=== PATIENT | male | born 1960 | race Caucasian/White ===

== ENCOUNTER 2019-06-30 06:11 | Emergency (ER) | payer SELFPAY ==
[2019-06-30] MEDS ORDERED: MORPHINE 4 MG/ML SYR ONE ×2 (06:29→11:01)
[2019-06-30] MEDS ORDERED: ONDANSETRON 4 MG/2 ML VIAL ONE (06:29)
[2019-06-30 06:31] LABS: Absolute Lymphocytes (CBC) 1.8 K/uL (0.7-4.9); Basophils % 0.8 % (0-1.3); Hematocrit 38.3 % (39.6-49.0); MPV 8.7 fL (7.6-11.3); RBC Red Blood Cell Count 4.33 M/uL (4.33-5.43)
[2019-06-30 06:47] LABS: Albumin 3.6 g/dL (3.4-5.0); Bilirubin Direct 0.1 mg/dL (0-0.2); Bilirubin Total 0.4 mg/dL (0.2-1.0); Potassium 3.3 mmol/L (3.5-5.1); Protein, Total 6.6 g/dL (6.4-8.2)
--- NOTE | 2019-06-30 07:47 | RAD REPORT ---
EXAM DESCRIPTION: CT - Abdomen Pelvis W Contrast - 06/30/2019 7:30 am CLINICAL HISTORY: ABD PAIN COMPARISON: Gallbladder ultrasound same date TECHNIQUE: Biphasic, helical CT imaging of the abdomen and pelvis was performed following 100 ml non -ionic IV contrast. Oral contrast was given. All CT scans are performed using dose optimization technique as appropriate and may include automated exposure control or mA/KV adjustment according to patient size. FINDINGS: No suspicious findings in the lung bases. The liver, spleen, and pancreas show no suspicious findings. Liver does demonstrate a fatty infiltrat ion pattern. Gallbladder is well filled but not dilated. No wall thickening, wall edema or pericholec ystic fluid suspected. There is questionable focal area of sludge or stones near the cystic duct orig in. No intrahepatic biliary tree dilatation. Common bile duct is prominent at 8- 9 mm. Duct stones ca n be occult on CT imaging. The Symmetric renal function is seen with no hydronephrosis or suspicious renal mass. No pyelonephritis o r acute parenchymal process. No bladder abnormalities. No adrenal abnormalities. No dilated bowel loops or bowel wall thickening. Mild sigmoid diverticulosis present without divertic ulitis. No appendicitis findings. No free air, free fluid or inflammatory stranding. No mass or bulk y lymphadenopathy. There appears to be postsurgical change to the lower abdominal wall. Left inguinal surgical clips are in place. Fat extends a few cm into the origin of the right inguinal canal. No ed isaac or congestion in this region. No suspicious bony findings. No suspicious vascular finding. IMPRESSION: Common bile duct is 8-9 mm without intrahepatic dilatation. Duct stones can be occult on CT imaging. Gallbladder is distended but not dilated. There are questionable stones or sludge near the cystic jovan t origin. Correlation is needed with any clinical or exam findings for gallstones/duct stone related pain patte rn. No other evidence for an acute process. Nonacute findings detailed in the body of the report.
--- NOTE | 2019-06-30 07:49 | RAD REPORT ---
EXAM DESCRIPTION: US - Abdomen Exam Limited - 06/30/2019 7:08 am CLINICAL HISTORY: r/o GB;Abd pain COMPARISON: No comparisons FINDINGS: No gallstones are confirmed on this examination. However, the deep central portion of the gallbladder near the cystic duct origin is not optimally visualized. Liver shows a diffuse fatty infi ltration pattern in this limits sonographic penetrance. No gallbladder wall thickening or pericholecystic fluid seen. Intrahepatic ducts are not dilated. Com mon bile duct is 8-9 mm. No duct stone could be seen. IMPRESSION: Common bile duct is 8- 9 mm, larger than typically seen but without evidence for a duct stone. No gallstones confirmed ; however, the deep central portion of the gallbladder near the cystic duct i s not optimally visualized. Fatty infiltration of the liver. If the patient has biliary obstructive symptoms, MRCP imaging would be an alternative means for evalu ating the common duct.
--- NOTE | 2019-06-30 11:11 | RAD REPORT ---
EXAM DESCRIPTION: MRI - Cholangiogram - 06/30/2019 10:53 am CLINICAL HISTORY: abd pain COMPARISON: Abdomen Pelvis W Contrast dated 06/30/2019; Abdomen Exam Limited dated 06/30/2019 FINDINGS: Three-dimensional MRCP was performed using maximum intensity projection reconstruction on the same work station. No intrahepatic biliary tree dilatation is seen. The common bile duct is normal caliber without evide nce of retained stone, stricture or mass. The pancreatic duct is not pathologically dilated. The gallbladder is unremarkable. Limited T2 sequences through the abdomen demonstrates no bulky adenopathy, significant free fluid or abscess. IMPRESSION: Negative MR cholangiogram.
--- NOTE | 2019-06-30 11:16 | EDPHYS ---
Physician Documentation [facility] Name: Xavier Youngblood Age: 58 yrs Sex: Male : 1960 Arrival Date: 06/30/2019 Time: 06:12 Bed 18 Private MD: ED Physician Geo Alba HPI: 06/30 06:15 This 58 yrs old Male presents to ER via EMS with complaints of abd pain, back jr8 pain. 06:15 Onset: The symptoms/episode began/occurred this morning. The symptoms radiate to jr8 Associated signs and symptoms: Pertinent negatives: nausea and vomiting, diarrhea. The symptoms are described as sharp. Pt reports waking up at 0300 with sharp pain in RUQ, back, Flank. Historical: - Allergies: 06:16 No Known Allergies; ak1 - Home Meds: 06:16 Lisinopril Oral [Active]; Metoprolol Tartrate Oral [Active]; tamsulosin oral oral ak1 [Active]; - PMHx: 06:16 Hypertension; ak1 - PSHx: 06:16 Hernia repair; TBI - amnesia, skull sx; ak1 - Immunization history:: Adult Immunizations unknown. - Social history:: Smoking status: Patient/guardian denies using tobacco. - Ebola Screening: : No symptoms or risks identified at this time. ROS: 06:16 Constitutional: Negative for fever, chills, and weight loss, Eyes: Negative for injury, jr8 pain, redness, and discharge, ENT: Negative for injury, pain, and discharge, Neck: Negative for injury, pain, and swelling, Cardiovascular: Negative for chest pain, palpitations, and edema, Respiratory: Negative for shortness of breath, cough, wheezing, and pleuritic chest pain, Back: Negative for injury and pain, MS/Extremity: Negative for injury and deformity, Neuro: Negative for headache, weakness, numbness, tingling, and seizure. 06:16 Abdomen/GI: Positive for abdominal pain, Negative for nausea, vomiting, and diarrhea. Exam: 06:16 Constitutional: This is a well developed, well nourished patient who is awake, alert, jr8 and in no acute distress. Head/Face: Normocephalic, atraumatic. Eyes: Pupils equal round and reactive to light, extra-ocular motions intact. Lids and lashes normal. Conjunctiva and sclera are non-icteric and not injected. Cornea within normal limits. Periorbital areas with no swelling, redness, or edema. ENT: MMM Neck: Trachea midline, no thyromegaly or masses palpated, and no cervical lymphadenopathy. Supple, full range of motion without nuchal rigidity, or vertebral point tenderness. No Meningismus. Chest/axilla: Normal chest wall appearance and motion. Nontender with no deformity. No lesions are appreciated. Cardiovascular: Regular rate and rhythm with a normal S1 and S2. No gallops, murmurs, or rubs. Normal PMI, no JVD. No pulse deficits. Respiratory: Lungs have equal breath sounds bilaterally, clear to auscultation and percussion. No rales, rhonchi or wheezes noted. No increased work of breathing, no retractions or nasal flaring. 06:16 Abdomen/GI: Inspection: obese Bowel sounds: normal, Palpation: soft, in all quadrants, moderate abdominal tenderness, in the right upper quadrant , voluntary guarding, is elicited in the right upper quadrant, Indicators: McBurney's point is not tender, White's sign is positive, Rovsing's sign is negative, Obturator sign is negative, Psoas sign is negative. Vital Signs: 06:12 BP 117 / 82; Pulse 84; Resp 16; Temp 97.9(O); Pulse Ox 98% on R/A; Weight 86.18 kg (R); ak1 Height 5 ft. 7 in. (170.18 cm) (R); Pain 10/10; 07:57 BP 115 / 80; Pulse 63; Resp 17; Pulse Ox 95% on R/A; tw2 08:51 BP 108 / 75; Pulse 67; Resp 17; Pulse Ox 98% on R/A; tw2 10:00 BP 105 / 72; Pulse 68; Resp 17; Pulse Ox 97% on R/A; tw2 11:16 BP 114 / 73; Pulse 61; Resp 17; Pulse Ox 100% on R/A; tw2 06:12 Body Mass Index 29.76 (86.18 kg, 170.18 cm) ak1 MDM: 06:15 Patient medically screened. jr8 11:13 Data reviewed: vital signs, nurses notes, radiologic studies, and as a result, I will jr8 discharge patient. Data interpreted: Pulse oximetry: on room air is 97 %. Interpretation:. Counseling: I had a detailed discussion with the patient and/or guardian regarding: the historical points, exam findings, and any diagnostic results supporting the discharge/admit diagnosis, lab results, radiology results, the need for outpatient follow up, a general surgeon. ED course: Pt feeling much better, tolerating PO fluids, No acute findings on MRCP, discussed possible need for HIDA scan. Will have PT FU with GI and SX, return precautions given. 06/30 06:16 Order name: Basic Metabolic Panel; Complete Time: 06:52 06/30 06:16 Order name: CBC with Diff; Complete Time: 06/30 06:16 Order name: Creatinine for Radiology; Complete Time: 06/30 06:16 Order name: Hepatic Function; Complete Time: :06/30 06:16 Order name: Lipase; Complete Time: :06/30 06:16 Order name: US Abdomen Limited; Complete Time: 07:06/30 06:16 Order name: IV Saline Lock; Complete Time: 06:24 06/30 06:16 Order name: Labs collected and sent; Complete Time: 06:24 06/30 07:11 Order name: CT Abd/Pelvis - IV Contrast Only; Complete Time: 07:56 06/30 08:19 Order name: Cholangiogram; Complete Time: 11:22 EDMS Administered Medications: 06:35 Drug: Zofran 4 mg Route: IVP; Site: right antecubital; 4 08:11 Follow up: Response: No adverse reaction tw2 06:37 Drug: morphine 4 mg {Note: Rass score 0, b/p 126/80.} Route: IVP; Site: right jb4 antecubital; 07:35 Follow up: Response: No adverse reaction; Pain is decreased; RASS: Alert and Calm (0) tw2 11:05 Drug: morphine 4 mg Route: IVP; Site: right antecubital; tw2 11:30 Follow up: Response: No adverse reaction; Pain is decreased; RASS: Alert and Calm (0) tw2 11:10 CANCELLED (Duplicate Order): morphine 4 mg Sub-Q once; RASS on ADMIN: Combtv4, Very tw2 Agttd3, Agttd2, Rstlss1, AlertClm0, Drwsy-1, Lt Sdtn-2, Mod Sdtn-3, Dp Sdtn-4, UnArsble-5 Disposition: 07/01 07:22 Co-signature as Attending Physician, Geo Alba MD I agree with the assessment and 4 plan of care. Disposition: 06/30/19 11:15 Discharged to Home. Impression: Upper abdominal pain, unspecified. - Condition is Stable. - Discharge Instructions: Fat and Cholesterol Restricted Diet, Cholelithiasis. - Prescriptions for Tylenol- Codeine #3 300-30 mg Oral Tablet - take 2 tablets by ORAL route every 6 hours As needed; 20 tablet. Zofran 4 mg Oral Tablet - take 1 tablet by ORAL route every 12 hours As needed; 20 tablet. - Medication Reconciliation Form, Thank You Letter, Work release form form. - Follow up: Kory Lozada MD; When: 5 - 6 days; Reason: Recheck today's complaints, Re-evaluation by your physician. - Problem is new. - Symptoms have improved. Signatures: Dispatcher [employer] EDMS Car Guaman PA PA jr8 Bailey Atwood RN RN ak1 Patsy Payan RN RN tw2 Lj Bermudez, COLLEEN RN jb4 Geo Alba MD MD tw4 Corrections: (The following items were deleted from the chart) 06/30 11:10 11:00 morphine 4 mg Sub-Q once; RASS on ADMIN: Combtv4, Very Agttd3, Agttd2, Rstlss1, tw2 AlertClm0, Drwsy-1, Lt Sdtn-2, Mod Sdtn-3, Dp Sdtn-4, UnArsble-5 ordered. tw 11:10 11:10 morphine 4 mg Sub-Q once; RASS on ADMIN: Combtv4, Very Agttd3, Agttd2, Rstlss1, tw2 AlertClm0, Drwsy-1, Lt Sdtn-2, Mod Sdtn-3, Dp Sdtn-4, UnArsble-5 ordered. 11:35 11:15 06/30/2019 11:15 Discharged to Home. Impression: Upper abdominal pain, tw2 unspecified. Condition is Stable. Forms are Work release form, Medication Reconciliation Form, Thank You Letter, Antibiotic Education, Prescription Opioid Use. Follow up: Kory Lozada; When: 5 - 6 days; Reason: Recheck today's complaints, Re-evaluation by your physician. Problem is new. Symptoms have improved. jr8
--- NOTE | 2019-06-30 11:16 | ER ---
Nurse's Notes [facility] Name: Xavier Youngblood Age: 58 yrs Sex: Male : 1960 Arrival Date: 06/30/2019 Time: 06:12 Bed 18 Private MD: Diagnosis: Upper abdominal pain, unspecified Presentation: 06/30 06:13 Presenting complaint: Patient states: right upper back pain described as "twisting ak1 pain" pt stated pain is increased by sitting and lying. pt denies injury to back. Transition of care: patient was not received from another setting of care. Onset of symptoms was June 30, 2019. Risk Assessment: Do you want to hurt yourself or someone else? Patient reports no desire to harm self or others. Initial Sepsis Screen: Does the patient meet any 2 criteria? No. Patient's initial sepsis screen is negative. Does the patient have a suspected source of infection? No. Patient's initial sepsis screen is negative. Care prior to arrival: None. 06:13 Method Of Arrival: EMS: [facility] ak1 06:13 Acuity: RADHA 3 ak1 Triage Assessment: 06:16 General: Appears in no apparent distress. Behavior is calm, cooperative. Pain: ak1 Complains of pain in right scapular area, right subscapular area and thoracic area. Historical: - Allergies: 06:16 No Known Allergies; ak1 - Home Meds: 06:16 Lisinopril Oral [Active]; Metoprolol Tartrate Oral [Active]; tamsulosin oral oral ak1 [Active]; - PMHx: 06:16 Hypertension; ak1 - PSHx: 06:16 Hernia repair; TBI - amnesia, skull sx; ak1 - Immunization history:: Adult Immunizations unknown. - Social history:: Smoking status: Patient/guardian denies using tobacco. - Ebola Screening: : No symptoms or risks identified at this time. Screenin:17 Abuse screen: Denies threats or abuse. Denies injuries from another. Nutritional ak1 screening: No deficits noted. Tuberculosis screening: No symptoms or risk factors identified. Fall Risk None identified. Assessment: 06:20 General: Appears in no apparent distress. uncomfortable, Behavior is calm, cooperative, jb4 appropriate for age. Pain: Complains of pain in right low back Pain radiates to right lower quadrant Pain currently is 10 out of 10 on a pain scale. Neuro: Level of Consciousness is awake, alert, obeys commands, Oriented to person, place, time, situation. Cardiovascular: Patient's skin is warm and dry. Respiratory: Airway is patent Respiratory effort is even, unlabored, Respiratory pattern is regular, symmetrical. GI: No deficits noted. No signs and/or symptoms were reported involving the gastrointestinal system. : No deficits noted. No signs and/or symptoms were reported regarding the genitourinary system. EENT: No deficits noted. No signs and/or symptoms were reported regarding the EENT system. Derm: Skin is intact, Skin is pink, warm \\T\\ dry. Musculoskeletal: Circulation, motion, and sensation intact. Range of motion: intact in all extremities. 07:57 Reassessment: Patient appears in no apparent distress at this time. Patient and/or tw2 family updated on plan of care and expected duration. Pain level reassessed. Patient is alert, oriented x 3, equal unlabored respirations, skin warm/dry/pink. Patient states symptoms have improved. 08:51 Reassessment: Patient appears in no apparent distress at this time. No changes from tw2 previously documented assessment. Patient and/or family updated on plan of care and expected duration. Pain level reassessed. Patient is alert, oriented x 3, equal unlabored respirations, skin warm/dry/pink. 10:00 Reassessment: Patient appears in no apparent distress at this time. No changes from tw2 previously documented assessment. 11:05 Reassessment: No changes from previously documented assessment. Patient and/or family tw2 updated on plan of care and expected duration. Pain level reassessed. Patient is alert, oriented x 3, equal unlabored respirations, skin warm/dry/pink. RASS 0. Vital Signs: 06:12 BP 117 / 82; Pulse 84; Resp 16; Temp 97.9(O); Pulse Ox 98% on R/A; Weight 86.18 kg (R); ak1 Height 5 ft. 7 in. (170.18 cm) (R); Pain 10/10; 07:57 BP 115 / 80; Pulse 63; Resp 17; Pulse Ox 95% on R/A; tw2 08:51 BP 108 / 75; Pulse 67; Resp 17; Pulse Ox 98% on R/A; tw2 10:00 BP 105 / 72; Pulse 68; Resp 17; Pulse Ox 97% on R/A; tw2 11:16 BP 114 / 73; Pulse 61; Resp 17; Pulse Ox 100% on R/A; tw2 06:12 Body Mass Index 29.76 (86.18 kg, 170.18 cm) ak1 ED Course: 06:12 Patient arrived in ED. ds1 06:12 Arm band placed on Patient placed in an exam room, on a stretcher, on pulse oximetry, ak1 Patient notified of wait time. 06:14 Car Guaman PA is PHCP. jr8 06:14 eGo Alba MD is Attending Physician. jr8 06:15 Triage completed. ak1 06:17 Patient has correct armband on for positive identification. Placed in gown. Bed in low ak1 position. Call light in reach. Side rails up X 1. Adult w/ patient. Pulse ox on. NIBP on. 06:20 Initial lab(s) drawn, by me, sent to lab. Inserted saline lock: 20 gauge in right jb4 antecubital area, using aseptic technique. Blood collected. 06:25 Basic Metabolic Panel Sent. jb4 06:25 CBC with Diff Sent. jb4 06:25 Creatinine for Radiology Sent. jb4 06:25 Hepatic Function Sent. jb4 06:25 Lipase Sent. jb4 07:02 Patsy Payan, RN is Primary Nurse. tw2 07:09 US Abdomen Limited In Process Unspecified. EDMS 07:14 Ultrasound completed. hr 07:30 CT Abd/Pelvis - IV Contrast Only In Process Unspecified. EDMS 10:08 Cholangiogram In Process Unspecified. EDMS 11:14 Kory Lozada MD is Referral Physician. jr8 11:35 No provider procedures requiring assistance completed. IV discontinued, intact, tw2 bleeding controlled, No redness/swelling at site. Pressure dressing applied. Administered Medications: 06:35 Drug: Zofran 4 mg Route: IVP; Site: right antecubital; jb4 08:11 Follow up: Response: No adverse reaction tw2 06:37 Drug: morphine 4 mg {Note: Rass score 0, b/p 126/80.} Route: IVP; Site: right jb4 antecubital; 07:35 Follow up: Response: No adverse reaction; Pain is decreased; RASS: Alert and Calm (0) tw2 11:05 Drug: morphine 4 mg Route: IVP; Site: right antecubital; tw2 11:30 Follow up: Response: No adverse reaction; Pain is decreased; RASS: Alert and Calm (0) tw2 11:10 CANCELLED (Duplicate Order): morphine 4 mg Sub-Q once; RASS on ADMIN: Combtv4, Very tw2 Agttd3, Agttd2, Rstlss1, AlertClm0, Drwsy-1, Lt Sdtn-2, Mod Sdtn-3, Dp Sdtn-4, UnArsble-5 Outcome: 11:15 Discharge ordered by . jr8 11:35 Discharged to home ambulatory, with significant other. tw 11:35 Condition: stable 11:35 Discharge instructions given to patient, significant other, Instructed on discharge instructions, follow up and referral plans. no drinking with medication, no driving heavy equipment, medication usage, Demonstrated understanding of instructions, follow-up care, medications, Prescriptions given X 2. 11:35 Patient left the ED. tw Signatures: Dispatcher [employer] EDMS Zofia Rinaldi Demi ds1 Car Guaman PA PA jr8 Bailey Atwood, RN RN ak1 Patsy Payan RN RN tw2 Lj Bermudez, COLLEEN RN jb4
[2019-06-30 11:52] VITALS: TEMP 97.9
[2019-06-30 11:58] VITALS: BP 114/73; O2SAT 100
== END 2019-06-30 11:35 | disposition home or self-care (01) ==
LOC: ER 06:11
DX: R10.11 Right upper quadrant pain (principal); I10 Essential (primary) hypertension
CPT/HCPCS: 36415; 74177; 74181; 76705; 80048; 80076; 83690; 85025; 96374; 96375; 99284; J2405; Q9967

== ENCOUNTER 2022-02-21 20:34 | Emergency (ER) | payer BC ==
--- OUTSIDE RECORDS SUMMARY | 2022-02-21 20:37 | XMS REPORT | Continuity of Care Document ---
:1960 Author Organization [facility] t Address [address] [place] [address] Care Team Providers Name Role Phone TIMOTHY LEHMAN Primary Care Physician Unavailable TIMOTHY LEHMAN Attending Clinician Unavailable Timothy Lehman MD Attending Clinician Payers Payer Name Policy Type Policy Number Effective Date Expiration Date S [facility] [id number] 2020 00:00:00 Problems Condition Condition Condition Status Onset Resolution Last Treating Co mments Source Name Details Category Date Date Treatment Clinician Date Anxiety Anxiety Disease Active 2014-09 Univers 0-27 ity of 00:00: [place] 00 Medical Branch Essential Essential Disease Active 2014-09 Uni vers hypertensi hypertensi 0-27 it y of on on 00:00: [place] 00 Medical Branch Gastroesop Gastroesop Disease Active 2014-09 U nivers hageal hageal 0-27 ity of reflux reflux 00:00: [place] disease disease 00 Medical without without Branch esophagiti esophagiti s s Allergies, Adverse Reactions, Alerts Allergy Allergy Status Severity Reaction(s) Onset Inactive Treating Comm ents Source Name Type Date Date Clinician NO KNOWN Drug Active Univers ALLERGIE Class ity of S [place] [facility] Social History Social Habit Start Date Stop Date Quantity Comments Source Exposure to Not sure [facility] SARS-CoV-2 (event) Medica l Branch History [facility] [place] Alcohol Frequency Medical Branch History SDOH [facility] [place] Alcohol Std Drinks Medica l Branch History SDWV [facility] [place] Alcohol Binge Medical Bra formerly [facility] Alcohol intake 2021-08-09 2021-08-09 0 /d [facility] 00:00:00 00:00:00 Medical Branch Alcohol Comment 2015-09-09 2015-09-09 rarely [facility] 00:00:00 00:00:00 Medical Branch Tobacco use and 2015-07-20 2015-07-20 Never used [facility] exposure 00:00:00 00:00:00 Medical Branch Sex [birth year] [facility] 00:00:00 00:00:00 Medical Branch Smoking Status Start Date Stop Date Source Never smoker [facility] Medications Ordered Filled Start Stop Current Ordering Indication Dosage Frequency Signature Comments Components Source Medication Medication Date Date Medication? Clinician (SIG) Name Name TAMSULOSIN Yes [id number] TAKE ONE Univers 0.4 mg 24 4-22 CAPSULE BY ity of hr capsule 00:00: MOUTH [place] 00 DAILY Medical Branch METOPROLOL Yes TAKE ONE Uni vers SUCCINATE 4-22 TABLET BY ity o f XL 25 mg 24 00:00: MOUTH [place] hr tablet 00 DAILY Medical Branch LISINOPRIL- Yes TAKE ONE Un jordan HYDROCHLORO 1-25 TABLET BY ity of THIAZIDE 00:00: MOUTH [place] 20-25 mg 00 DAILY Medical per tablet Branch LISINOPRIL- Yes TAKE ONE Un jordan HYDROCHLORO 1-25 TABLET BY ity of THIAZIDE 00:00: MOUTH [place] 20-25 mg 00 DAILY Medical per tablet Branch TAMSULOSIN Yes [id number] TAKE ONE Univers 0.4 mg 24 1-24 CAPSULE BY ity of hr capsule 00:00: MOUTH [place] DAILY Medical Branch METOPROLOL Yes TAKE ONE Uni vers SUCCINATE 1-24 TABLET BY ity o f XL 25 mg 24 00:00: MOUTH [place] hr tablet 00 DAILY Medical Branch TAMSULOSIN Yes [id number] TAKE ONE Univers 0.4 mg 24 1-24 CAPSULE BY ity of hr capsule 00:00: MOUTH [place] 00 DAILY Medical Branch METOPROLOL Yes TAKE ONE Uni vers SUCCINATE 1-24 TABLET BY ity o f XL 25 mg 24 00:00: MOUTH [place] hr tablet 00 DAILY Medical Branch TAMSULOSIN 0 2022- No [id number] TAKE ONE Univers 0.4 mg 24 1-24 04-22 CAPSULE BY ity of hr capsule 00:00: 00:00 MOUTH [place] 00 :00 DAILY Medical Branch METOPROLOL 0 2021- No TAKE ONE Un jordan SUCCINATE 1-24 -22 TABLET BY ity of XL 25 mg 24 00:00: [place] tablet [place] :00 DAILY Medical Branch azithromyci 2020-09 Yes [id number] 500mg Take 1 Univers n 500 mg 1-16 tablet by ity of tablet 00:00: mouth 00 daily. Medical Branch benzonatate 2020-09 Yes [id number] 200mg Take 1 Univers 200 mg 1-16 capsule by ity of capsule 00:00: mouth 3 (three) Medical times Branch daily as needed for Cough. ALPRAZolam 2020-09 Yes [id number] 1mg Take 1 U nivers 1 mg tablet 1-16 tablet by ity of 00:00: mouth (two) Medical times Branch daily. azithromyci 2020-09 Yes [id number] 500mg Take 1 Univers n 500 mg 1-16 tablet by ity of tablet 00:00: mouth 00 daily. Medical Branch benzonatate 2020-09 Yes [id number] 200mg Take 1 Univers 200 mg 1-16 capsule by ity of capsule 00:00: mouth (three) Medical times Branch daily as needed for Cough. ALPRAZolam 2020-09 Yes [id number] 1mg Take 1 U nivers 1 mg tablet 1-16 tablet by ity of 00:00: mouth (two) Medical times Branch daily. azithromyci 2020-09 Yes [id number] 500mg Take 1 Univers n 500 mg 1-16 tablet by ity of tablet 00:00: mouth 00 daily. Medical Branch benzonatate 2020-09 Yes [id number] 200mg Take 1 Univers 200 mg 1-16 capsule by ity of capsule 00:00: mouth (three) Medical times Branch daily as needed for Cough. ALPRAZolam 2020-09 Yes [id number] 1mg Take 1 U nivers 1 mg tablet 1-16 tablet by ity of 00:00: mouth (two) Medical times Branch daily. azithromyci 2020-09 Yes [id number] 500mg Take 1 Univers n 500 mg 1-16 tablet by ity of tablet 00:00: mouth [place] 00 daily. Medical Branch benzonatate 2020-09 Yes [id number] 200mg Take 1 Univers 200 mg 1-16 capsule by ity of capsule 00:00: mouth 3 (three) Medical times Branch daily as needed for Cough. ALPRAZolam 2020-09 Yes [id number] 1mg Take 1 U nivers 1 mg tablet 1-16 tablet by ity of 00:00: mouth 2 (two) Medical times Branch daily. azithromyci 2020-09 Yes [id number] 500mg Take 1 Univers n 500 mg 1-16 tablet by ity of tablet 00:00: mouth 00 daily. Medical Branch benzonatate 2020-09 Yes [id number] 200mg Take 1 Univers 200 mg 1-16 capsule by ity of capsule 00:00: mouth 3 (three) Medical times Branch daily as needed for Cough. ALPRAZolam 2020-09 Yes [id number] 1mg Take 1 U nivers 1 mg tablet 1-16 tablet by ity of 00:00: mouth (two) Medical times Branch daily. METOPROLOL 2020-09 Yes TAKE ONE Uni vers SUCCINATE 0-26 TABLET BY ity o f XL 25 mg 24 00:00: MOUTH [place] hr tablet 00 DAILY Medical Branch TAMSULOSIN 2020-09 Yes [id number] TAKE ONE Univers 0.4 mg 24 0-26 CAPSULE BY ity of hr capsule 00:00: MOUTH [place] 00 DAILY Medical Branch METOPROLOL 2020-09 Yes TAKE ONE Uni vers SUCCINATE 0-26 TABLET BY ity o f XL 25 mg 24 00:00: MOUTH [place] hr tablet 00 DAILY Medical Branch TAMSULOSIN 2020-09 Yes [id number] TAKE ONE Univers 0.4 mg 24 0-26 CAPSULE BY ity of hr capsule 00:00: MOUTH [place] 00 DAILY Medical Branch METOPROLOL 2020-09- No TAKE ONE Un jordan SUCCINATE 0-26 01-24 TABLET BY ity of XL 25 mg 24 00:00: 00:[place] tablet 00 :00 DAILY Medical Branch TAMSULOSIN 2020-09- No [id number] TAKE ONE Univers 0.4 mg 24 0-26 01-24 CAPSULE BY ity of hr capsule 00:00: 00:00 MOUTH [place] 00 :00 DAILY Medical Branch ALPRAZolam 2020- No [id number] 1mg Take 1 Univers 1 mg tablet 8-16 tablet by it y of 00:00: 00:00 mouth 2 [place] 00 :00 (two) Medical times Branch daily. ALPRAZolam 2020- No [id number] 1mg Take 1 Univers 1 mg tablet 8-30 11-16 tablet by it y of 00:00: 00:00 mouth 2 [place] 00 :00 (two) Medical times Branch daily. lisinopriL- Yes 1{tbl} Take 1 Un jordan hydrochloro 8-02 tablet by ity of thiazide 00:00: mouth [place] 20-25 mg 00 daily. Medical per tablet Branch lisinopriL- Yes 1{tbl} Take 1 Un jordan hydrochloro 8-02 tablet by ity of thiazide 00:00: mouth [place] 20-25 mg 00 daily. Medical per tablet Branch lisinopriL- Yes 1{tbl} Take 1 Un jordan hydrochloro 8-02 tablet by ity of thiazide 00:00: mouth [place] 20-25 mg 00 daily. Medical per tablet Branch lisinopriL- 2021- No 1{tbl} Take 1 U nivers hydrochloro 8-02 01-25 tablet by it y of thiazide 00:00: 00:00 mouth [place] 20-25 mg 00 :00 daily. Medical per tablet Branch etodolac Yes [id number] 400mg Take 1 U nivers 400 mg 5-05 tablet by ity of tablet 00:00: mouth [place] (two) Medical times Branch daily with meals. etodolac 0 Yes [id number] 400mg Take 1 U nivers 400 mg 5-05 tablet by ity of tablet 00:00: mouth 2 [place] (two) Medical times Branch daily with meals. etodolac 0 Yes [id number] 400mg Take 1 U nivers 400 mg 5-05 tablet by ity of tablet 00:00: mouth 2 [place] (two) Medical times Branch daily with meals. etodolac Yes [id number] 400mg Take 1 U nivers 400 mg 5-05 tablet by ity of tablet 00:00: mouth 2 [place] 00 (two) Medical times Branch daily with meals. etodolac 2020-0 Yes [id number] 400mg Take 1 U nivers 400 mg 5-05 tablet by ity of tablet 00:00: mouth 2 [place] 00 (two) Medical times Branch daily with meals. amoxicillin 2020-0 Yes 500mg Take 500 U nivers 500 mg 2-09 mg by ity of tablet 11:17: mouth 3 [place] 54 (three) Medical times Branch daily. amoxicillin 2020-0 Yes 500mg Take 500 U nivers 500 mg 2-09 mg by ity of tablet 11:17: mouth 3 [place] 54 (three) Medical times Branch daily. amoxicillin 2020-0 Yes 500mg Take 500 U nivers 500 mg 2-09 mg by ity of tablet 11:17: mouth 3 [place] 54 (three) Medical times Branch daily. amoxicillin 2020-0 Yes 500mg Take 500 U nivers 500 mg 2-09 mg by ity of tablet 11:17: mouth 3 [place] 54 (three) Medical times Branch daily. amoxicillin 2020-0 Yes 500mg Take 500 U nivers 500 mg 2-09 mg by ity of tablet 11:17: mouth 3 [place] 54 (three) Medical times Branch daily. omeprazole 2018-09 Yes [id number] 20mg Take 20 mg Univers (PRILOSEC 0-18 by mouth ity of OTC) 20 mg 10:49: daily. [address] omeprazole 2018-09 Yes [id number] 20mg Take 20 mg Univers (PRILOSEC 0-18 by mouth ity of OTC) 20 mg 10:49: daily. [address] omeprazole 2018-09 Yes [id number] 20mg Take 20 mg Univers (PRILOSEC 0-18 by mouth ity of OTC) 20 mg 10:49: daily. [address] omeprazole 2018- Yes [id number] 20mg Take 20 mg Univers (PRILOSEC 0-18 by mouth ity of OTC) 20 mg 10:49: daily. [address] omeprazole 2018-09 Yes [id number] 20mg Take 20 mg Univers (PRILOSEC 0-18 by mouth ity of OTC) 20 mg 10:49: daily. [address] Immunizations Ordered Filled Immunization Date Status Comments Sour e Immunization Name Name SARS-COV-2 COVID-19 2020-10-18 Completed Unive rsity of MODERNA VACCINE 00:00:00 [facility] Branch SARS-COV-2 COVID-19 2020-10-18 Completed Unive rsity of MODERNA VACCINE 00:00:00 [facility] Branch SARS-COV-2 COVID-19 2020-10-18 Completed Unive rsity of MODERNA VACCINE 00:00:00 [facility] Branch SARS-COV-2 COVID-19 2020-10-18 Completed Unive rsity of MODERNA VACCINE 00:00:00 [facility] Branch SARS-COV-2 COVID-19 2020-10-18 Completed Unive rsity of MODERNA VACCINE 00:00:00 [facility] Branch SARS-COV-2 COVID-19 2020-09-20 Completed Unive rsity of MODERNA VACCINE 00:00:00 [facility] Branch SARS-COV-2 COVID-19 2020-09-20 Completed Unive rsity of MODERNA VACCINE 00:00:00 [facility] Branch SARS-COV-2 COVID-19 2020-09-20 Completed Unive rsity of MODERNA VACCINE 00:00:00 [facility] Branch SARS-COV-2 COVID-19 2020-09-20 Completed Unive rsity of MODERNA VACCINE 00:00:00 [facility] Branch SARS-COV-2 COVID-19 2020-09-20 Completed Unive rsity of MODERNA VACCINE 00:00:00 [facility] Influenza Virus 2017-07-26 Completed Universit y of Vaccine Quad IM 00:00:00 [facility] ical Multi-dose 6+ MO Branch Influenza Virus 2017-07-26 Completed Universit y of Vaccine Quad IM 00:00:00 [place] Med ical Multi-dose 6+ MO Branch Influenza Virus 2017-07-26 Completed Universit y of Vaccine Quad IM 00:00:00 [place] Med ical Multi-dose 6+ MO Branch Influenza Virus 2017-07-26 Completed Universit y of Vaccine Quad IM 00:00:00 [place] Med ical Multi-dose 6+ MO Branch Influenza Virus 2017-07-26 Completed Universit y of Vaccine Quad IM 00:00:00 [facility] ical Multi-dose 6+ MO Branch HEPATITIS A 2016-01-19 Completed University of 00:00:00 [facility] HEPATITIS A 2016-01-19 Completed University of 00:00:00 [facility] HEPATITIS A 2016-01-19 Completed University of 00:00:00 [facility] HEPATITIS A 2016-01-19 Completed University of 00:00:00 [facility] HEPATITIS A 2016-01-19 Completed University of 00:00:00 [facility] Influenza Virus 2015-07-20 Completed Universit y of Vaccine Quad ID 00:00:00 [facility] [age] YRS Branch HEPATITIS A 2015-07-20 Completed University of 00:00:00 [facility] Influenza Virus 2015-07-20 Completed Universit y of Vaccine Quad ID 00:00:00 [facility] 1863 [facility] Branch HEPATITIS A 2015-07-20 Completed University of 00:00:00 [facility] Influenza Virus 2015-07-20 Completed Universit y of Vaccine Quad ID 00:00:00 [facility] 1863 [facility] Branch HEPATITIS A 2015-07-20 Completed University of 00:00:00 [facility] Influenza Virus 2015-07-20 Completed Universit y of Vaccine Quad ID 00:00:00 [facility] 1863 [facility] Branch HEPATITIS A 2015-07-20 Completed University of 00:00:00 [facility] Influenza Virus 2015-07-20 Completed Universit y of Vaccine Quad ID 00:00:00 [address] [facility] Branch HEPATITIS A 2015-07-20 Completed University of 00:00:00 [facility] Vital Signs Vital Name Observation Time Observation Value Comments Source Systolic blood 2021-08-09 17:08:00 127 mm[Hg] Univer sity of pressure [facility] Diastolic blood 2021-08-09 17:08:00 89 mm[Hg] Unive rsity of pressure [facility] Heart rate 2021-08-09 17:08:00 82 /min [facility] Body temperature 2021-08-09 17:08:00 36.83 [facility] [place] [facility] Body height 2021-08-09 17:08:00 170.2 cm [facility] Body weight 2021-08-09 17:08:00 90.719 kg [facility] BMI 2021-08-09 17:08:00 31.32 kg/m2 [facility] Oxygen saturation in 2021-08-09 17:08:00 97 /min University of Arterial blood by [facility] Pulse oximetry Branch Procedures This patient has no known procedures. Encounters Start End Encounter Admission Attending Care Care Encounter Source Date/Time Date/Time Type Type Clinicians Facility Department ID 2022-03-08 2022-03-08 [facility] [id number] Univers 10:00:00 10:00:00 ASYA [id number] [facility] [place] [facility] 2022-02-06 2022-02-06 [facility] [id number] [id number] Univers 15:00:00 15:00:00 ASYA [id number] [facility] [place] [facility] 2022-02-06 2022-02-06 [facility] [id number] Univers 15:00:00 15:00:00 [facility] 2022-01-13 2022-01-13 [facility] [id number] Univers 00:00:00 00:00:00 [facility] [id number] it y of Edward [place] [id number] Angel as ERVIN?BLEA [phone] [address] MEDICAL OFFICE [facility] 2021-10-18 2021-10-18 [facility] [id number] Univers 00:00:00 00:00:00 [facility] [id number] it y of [place] [id number] Angel as PROFESSIO [phone] [address] OFFICE BUILDING ONE 2021-10-15 2021-10-15 [facility] [id number] Univers 00:00:00 00:00:00 [facility] [id number] it y of Edward [place] [id number] Angel as ERVIN?BLEA [phone] [address] OFFICE BUILDING 2021-08-09 2021-08-09 [facility] [id number] [facility] 11:03:02 11:18:02 Visit [facility] [id number] it y of Timothy [place] [id number] Angel as ERVIN?BLEA [phone] Ne steve MELENDEZ [address] [place] [address] MEDICAL OFFICE BUILDING Results This patient has no known results.
[2022-02-21 21:51] LABS: Absolute Lymphocytes (CBC) 1.6 K/uL (0.7-4.9); Hematocrit 41.3 % (39.6-49.0); Lymphocytes % 15.3 % (15.3-44.8); MPV 8.6 fL (7.6-11.3); RBC Red Blood Cell Count 4.65 M/uL (4.33-5.43)
[2022-02-21] MEDS ORDERED: ONDANSETRON 4 MG/2 ML VIAL ONE (21:54)
[2022-02-21] MEDS ORDERED: NA CHLORIDE 0.9% 1,000 ML ONE (21:54)
[2022-02-21] MEDS ORDERED: MORPHINE 4 MG/ML SYR ONE (21:54)
[2022-02-21 22:10] LABS: Albumin 3.8 g/dL (3.4-5.0); Bilirubin Direct 0.1 mg/dL (0-0.2); Bilirubin Total 0.6 mg/dL (0.2-1.0); Potassium 3.9 mmol/L (3.5-5.1); Protein, Total 6.9 g/dL (6.4-8.2)
[2022-02-22] MEDS ORDERED: ONDANSETRON 4 MG/2 ML VIAL ONE (00:04)
[2022-02-22] MEDS ORDERED: HYDROMORPHONE HCL 1 MG/ML INJ ONE (00:04)
--- NOTE | 2022-02-22 03:00 | EDPHYS ---
Physician Documentation [facility] Name: Xavier Youngblood Age: 61 yrs Sex: Male : 1960 Arrival Date: 02/21/2022 Time: 20:42 Bed 16 Private MD: ED Physician Lawrence Sheikh HPI: 02/21 21:10 This 61 yrs old Male presents to ER via EMS with complaints of Back Pain. mh7 21:10 The patient presents with pain that is acute, with no known mechanism of injury. The mh7 symptoms are located in the right mid back. Onset: The symptoms/episode began/occurred today, 3 hour(s) ago. The pain does not radiate. Associated signs and symptoms: Pertinent negatives: abdominal pain, chest pain, constipation, dysuria, fever, headache, hematuria, incontinence, nausea, numbness, tingling, urinary retention, vomiting, weakness. The problem was sustained when bending over, when lifting laundry. Modifying factors: The patient symptoms are alleviated by nothing, the patient symptoms are aggravated by movement, touching area. Severity of symptoms: At their worst the symptoms were moderate, earlier today, in the emergency department the symptoms have improved, moderately. Historical: - Allergies: 20:46 No Known Allergies; ll3 - Home Meds: 20:46 lisinopril Oral [Active]; Metoprolol Tartrate Oral [Active]; ll3 - PMHx: 20:46 Hypertension; ll3 - PSHx: 20:46 None; ll3 - Immunization history:: Client reports receiving the 2nd dose of the Covid vaccine. - Social history:: Smoking status: Patient denies any tobacco usage or history of. ROS: 21:10 Constitutional: Negative for fever, chills, and weight loss, Eyes: Negative for injury, mh7 pain, redness, and discharge, ENT: Negative for injury, pain, and discharge, Neck: Negative for injury, pain, and swelling, Cardiovascular: Negative for chest pain, palpitations, and edema, Respiratory: Negative for shortness of breath, cough, wheezing, and pleuritic chest pain, Abdomen/GI: Negative for abdominal pain, nausea, vomiting, diarrhea, and constipation, : Negative for injury, bleeding, discharge, and swelling, MS/Extremity: Negative for injury and deformity, Skin: Negative for injury, rash, and discoloration, Neuro: Negative for headache, weakness, numbness, tingling, and seizure, Psych: Negative for depression, anxiety, suicide ideation, homicidal ideation, and hallucinations, Allergy/Immunology: Negative for hives, rash, and allergies, Endocrine: Negative for neck swelling, polydipsia, polyuria, polyphagia, and marked weight changes, Hematologic/Lymphatic: Negative for swollen nodes, abnormal bleeding, and unusual bruising. Exam: 21:10 Head/Face: Normocephalic, atraumatic. Eyes: Pupils equal round and reactive to light, mh7 extra-ocular motions intact. Lids and lashes normal. Conjunctiva and sclera are non-icteric and not injected. Cornea within normal limits. Periorbital areas with no swelling, redness, or edema. Neck: Trachea midline, no thyromegaly or masses palpated, and no cervical lymphadenopathy. Supple, full range of motion without nuchal rigidity, or vertebral point tenderness. No Meningismus. Chest/axilla: Normal chest wall appearance and motion. Nontender with no deformity. No lesions are appreciated. Cardiovascular: Regular rate and rhythm with a normal S1 and S2. No gallops, murmurs, or rubs. Normal PMI, no JVD. No pulse deficits. Respiratory: Lungs have equal breath sounds bilaterally, clear to auscultation and percussion. No rales, rhonchi or wheezes noted. No increased work of breathing, no retractions or nasal flaring. Abdomen/GI: Soft, non-tender, with normal bowel sounds. No distension or tympany. No guarding or rebound. No evidence of tenderness throughout. Skin: Warm, dry with normal turgor. Normal color with no rashes, no lesions, and no evidence of cellulitis. MS/ Extremity: Pulses equal, no cyanosis. Neurovascular intact. Full, normal range of motion. Neuro: Awake and alert, GCS 15, oriented to person, place, time, and situation. Cranial nerves II-XII grossly intact. Motor strength 5/5 in all extremities. Sensory grossly intact. Cerebellar exam normal. Normal gait. Psych: Awake, alert, with orientation to person, place and time. Behavior, mood, and affect are within normal limits. 21:10 Constitutional: The patient appears in no acute distress, alert, awake, uncomfortable. Vital Signs: 20:42 BP 122 / 109; Pulse 54; Resp 18; Temp 97.9(TE); Pulse Ox 97% on R/A; Weight 90.72 kg ll3 (R); Height 5 ft. 7 in. (170.18 cm) (R); Pain 10/10; 21:03 BP 132 / 79; Pulse 66; Resp 18; Pulse Ox 97% on R/A; esperanza 21:58 BP 135 / 79; Pulse 62; Resp 18; Temp 97.9; Pulse Ox 98% on R/A; esperanza 23:22 BP 128 / 92; Pulse 59; esperanza 06 01:39 BP 122 / 70; Pulse 57; Resp 16; Pulse Ox 97% on R/A; esperanza 03:02 BP 125 / 79; Pulse 60; Resp 16; Temp 97.9; Pulse Ox 97% on R/A; esperanza 02/21 20:42 Body Mass Index 31.32 (90.72 kg, 170.18 cm) ll3 MDM: 02:57 Differential diagnosis: arthritis, Cholelithiasis chronic back pain, Fatigue Fracture [facility] Osteoarthritis ruptured disc, sprain, Ureterolithiasis. Data reviewed: vital signs, nurses notes, lab test result(s), CBC, electrolytes, urinalysis, radiologic studies, CT scan, ultrasound. Data interpreted: Pulse oximetry: on room air is 97 %. Interpretation: normal. Counseling: I had a detailed discussion with the patient and/or guardian regarding: the historical points, exam findings, and any diagnostic results supporting the discharge/admit diagnosis, lab results, radiology results, the need for outpatient follow up, a general surgeon, to return to the emergency department if symptoms worsen or persist or if there are any questions or concerns that arise at home. Response to treatment: the patient's symptoms have resolved after treatment, the patient's blood pressure is in an acceptable range, mental status has returned to baseline, the patient no longer shows bradycardia, the patient is not short of breath, the patient is not tachycardic, the patient's pain is gone, the patient's temperature has normalized, the patient is now symptom free, patient is well hydrated. 02:59 Patient medically screened. [facility] 02/21 21:22 Order name: CBC with Diff; Complete Time: 22:22 [facility] 02/21 21:22 Order name: Basic Metabolic Panel; Complete Time: 22:22 [facility] 02/21 21:22 Order name: LFT's; Complete Time: 22:22 [facility] 02/21 21:36 Order name: CT Abd/Pelvis - Without Contrast [facility] 02/21 23:42 Order name: US Abdomen Limited [facility] 02/21 21:22 Order name: Urine Dipstick-Ancillary (obtain specimen) [facility] Administered Medications: 02/21 21:57 Drug: morphine 4 mg Route: IVP; Infused Over: 4 mins; Site: left antecubital; esperanza 21:57 Drug: Zofran (Ondansetron) 4 mg Route: IVP; Site: left antecubital; esperanza 21:57 Drug: NS 0.9% 1000 ml Route: IV; Rate: 1000 ml; Site: left antecubital; esperanza 02/22 00:04 Follow up: Response: No adverse reaction; IV Status: Completed infusion esperanza 00:04 Drug: Dilaudid (HYDROmorphone) 1 mg Route: IVP; Site: left antecubital; esperanza 00:04 Drug: Zofran (Ondansetron) 4 mg Route: IVP; Site: left antecubital; esperanza Disposition Summary: 02/22/22 02:59 Discharge Ordered Location: Home [facility] Problem: new [facility] Symptoms: have improved [facility] Condition: Stable [facility] Diagnosis - Other cholelithiasis without obstruction [facility] - Back Pain [facility] Followup: [facility] - With: Private Physician - When: 1 - 2 days - Reason: Worsening of condition, Recheck today's complaints, Continuance of care, Re-evaluation by your physician Followup: [facility] - With: Lj Hay MD - When: 1 - 2 days - Reason: Worsening of condition, Recheck today's complaints Discharge Instructions: - Discharge Summary Sheet [facility] - Acute Back Pain, Adult [facility] - Cholelithiasis, [id number] [facility] Forms: - Medication Reconciliation Form [facility] - Thank You Letter [facility] - Antibiotic Education [facility] - Prescription Opioid Use [facility] Prescriptions: - dicyclomine 20 mg Oral Tablet - take 1 tablet by ORAL route 4 times per day As needed; 20 tablet; Refills: 0, 7 Product Selection Permitted - ketorolac 10 mg Oral tablet - take 1 tablet by ORAL route every 6-8 hours As needed not to exceed 40 mg in mh7 24hrs; 12 tablet; Refills: 0, Product Selection Permitted Signatures: Dispatcher [employer] Lawrence Clayton MD MD 7 Miguel Fisher RN RN 3 Apple Prince RN RN esperanza
--- NOTE | 2022-02-22 03:00 | ER ---
Nurse's Notes [facility] Name: Xavier Youngblood Age: 61 yrs Sex: Male : 1960 Arrival Date: 02/21/2022 Time: 20:42 Bed 16 Private MD: Diagnosis: Other cholelithiasis without obstruction;Back Pain Presentation: 02/21 20:42 Chief complaint: Patient states: "2 hours ago I started to have a back spasm and it ll3 wont go away, this has happened twice before in my life", c/o back pain 07/03. Coronavirus screen: Vaccine status: Patient reports receiving the 2nd dose of the covid vaccine. At this time, the client does not indicate any symptoms associated with coronavirus-19. Ebola Screen: No symptoms or risks identified at this time. Initial Sepsis Screen: Does the patient meet any 2 criteria? No. Patient's initial sepsis screen is negative. Does the patient have a suspected source of infection? No. Patient's initial sepsis screen is negative. Risk Assessment: Do you want to hurt yourself or someone else? Patient reports no desire to harm self or others. Onset of symptoms was February 21, 2022 at 18:45. 20:42 Method Of Arrival: EMS: [facility] 20:42 Acuity: [facility] 3 ll3 Triage Assessment: 20:46 General: Appears uncomfortable, Behavior is cooperative, anxious. Pain: Complains of ll3 pain in left subscapular area Pain currently is 10 out of 10 on a pain scale. Quality of pain is described as spasm Pain began 2 hours ago. Is continuous. Neuro: No deficits noted. Respiratory: No deficits noted. Derm: Skin is pink, warm \\T\\ dry. Musculoskeletal: Circulation, motion, and sensation intact. Reports pain in back. Historical: - Allergies: 20:46 No Known Allergies; ll3 - Home Meds: 20:46 lisinopril Oral [Active]; Metoprolol Tartrate Oral [Active]; ll3 - PMHx: 20:46 Hypertension; ll3 - PSHx: 20:46 None; ll3 - Immunization history:: Client reports receiving the 2nd dose of the Covid vaccine. - Social history:: Smoking status: Patient denies any tobacco usage or history of. Screenin:03 Abuse screen: Denies threats or abuse. Denies injuries from another. Nutritional esperanza screening: No deficits noted. Tuberculosis screening: No symptoms or risk factors identified. Fall Risk None identified. Assessment: 20:58 Reassessment: Patient appears in no apparent distress at this time. No changes from esperanza previously documented assessment. The pt was recv'd to room #16 \\T\\ 2032, via [facility], with the c/o a "back spasm". Per EMS and the pt, he took 4 Xanax at about 1930. He reports that it hasn't "helped". 02/22 02:01 Reassessment: The pt is much more comfortable. We are awaiting the results of the US. esperanza He is sleeping with clear, even breaths and remains on the bedside monitor. Vital Signs: 02/21 20:42 BP 122 / 109; Pulse 54; Resp 18; Temp 97.9(TE); Pulse Ox 97% on R/A; Weight 90.72 kg ll3 (R); Height 5 ft. 7 in. (170.18 cm) (R); Pain 10/10; 21:03 BP 132 / 79; Pulse 66; Resp 18; Pulse Ox 97% on R/A; esperanza 21:58 BP 135 / 79; Pulse 62; Resp 18; Temp 97.9; Pulse Ox 98% on R/A; esperanza 23:22 BP 128 / 92; Pulse 59; esperanza 06/01 01:39 BP 122 / 70; Pulse 57; Resp 16; Pulse Ox 97% on R/A; esperanza 03:02 BP 125 / 79; Pulse 60; Resp 16; Temp 97.9; Pulse Ox 97% on R/A; esperanza 02/21 20:42 Body Mass Index 31.32 (90.72 kg, 170.18 cm) ll3 ED Course: 02/21 20:42 Patient arrived in ED. ll3 20:46 Triage completed. ll3 20:46 Arm band placed on Patient placed in an exam room, on a stretcher, on pulse oximetry. ll3 20:51 Lawrence Sheikh MD is Attending Physician. mh7 20:58 Apple Prince RN is Primary Nurse. esperanza 21:00 Pulse ox on. NIBP on. esperanza 21:00 Bed in low position. Call light in reach. Side rails up X 1. Adult w/ patient. esperanza 21:04 No provider procedures requiring assistance completed. esperanza 21:39 Inserted saline lock: 20 gauge in left antecubital area, using aseptic technique. Blood zm collected. 21:39 LFT's Sent. zm 21:39 Basic Metabolic Panel Sent. zm 21:39 CBC with Diff Sent. zm 21:58 LFT's Sent. esperanza 21:58 Basic Metabolic Panel Sent. esperanza 22:11 CT Abd/Pelvis - Without Contrast In Process Unspecified. EDMS 02/22 00:14 US Abdomen Limited In Process Unspecified. EDMS 02:58 Lj Hay MD is Referral Physician. [facility] 03:13 intact, bleeding controlled, No redness/swelling at site. Pressure dressing applied. esperanza Administered Medications: 02/21 21:57 Drug: morphine 4 mg Route: IVP; Infused Over: 4 mins; Site: left antecubital; esperanza 21:57 Drug: Zofran (Ondansetron) 4 mg Route: IVP; Site: left antecubital; esperanza 21:57 Drug: NS 0.9% 1000 ml Route: IV; Rate: 1000 ml; Site: left antecubital; esperanza 02/22 00:04 Follow up: Response: No adverse reaction; IV Status: Completed infusion esperanza 00:04 Drug: Dilaudid (HYDROmorphone) 1 mg Route: IVP; Site: left antecubital; esperanza 00:04 Drug: Zofran (Ondansetron) 4 mg Route: IVP; Site: left antecubital; esperanza Medication: 02:03 VIS not applicable for this client. esperanza Outcome: 02/21 21:04 Condition: stable esperanza 02/22 02:59 Discharge ordered by . [facility] 03:14 Discharged to home ambulatory, with family. esperanza 03:14 Discharge instructions given to patient, Instructed on discharge instructions, follow up and referral plans. medication usage, Demonstrated understanding of instructions, follow-up care, medications, Prescriptions given X 2. 03:14 Patient left the ED. esperanza Signatures: Dispatcher [employer] [facility] Lawrence Sheikh MD MD Miguel Turcios RN RN 3 Apple Prince RN RN bo Martinez, Zaina
[2022-02-22 03:44] VITALS: TEMP 97.9
[2022-02-22 03:49] VITALS: O2SAT 97
[2022-02-22 03:51] VITALS: BP 125/79
--- NOTE | 2022-02-22 11:08 | RAD REPORT ---
EXAM DESCRIPTION: Abdomen Pelvis Wo Contrast CLINICAL HISTORY: 61 years Male right flank/mid back pain COMPARISON: None TECHNIQUE: Images were obtained in axial, sagittal, and coronal planes. No intravenous or oral contr ast was administered. This exam was performed according to our departmental dose-optimization program which includes use of Automated Exposure Control, adjustment of the mA and/or kV according to patient size and/or use of i terative reconstruction technique. FINDINGS: No abnormality involving the liver, spleen, pancreas, or right adrenal gland. 1.1 cm low-a ttenuation lesion left adrenal gland likely adenoma. Cholelithiasis. 1.2 cm calcified gallstone in re gion of the gallbladder. Retained fluid and debris within the stomach. Mild gastric distention. No obstructing renal or ureteral calculi bilaterally. No hydronephrosis bilaterally. Unremarkable rosanna dder. Enlarged prostate gland. Appendix within normal limits. No bowel obstruction, perforation, or inflammation. Postsurgical ordoñez es left inguinal region. No acute osseous abnormality. No abnormality lower lungs bilaterally. No dilatation of abdominal aorta. No adenopathy or abnormal fluid collections seen. IMPRESSION: Cholelithiasis with 1.2 cm calcified gallstone in the region of the neck of gallbladder. Correlation with ultrasound the gallbladder suggested for further characterization. Enlarged prostate gland. Electronically signed by: Mayelin Zhong MD 02/21/2022 10:29 PM CDT Due to temporary technical issues with the PACS/Fluency reporting system, reports are being signed by the in house radiologists without review as a courtesy to insure prompt reporting. The interpreting radiologist is fully responsible for the content of the report.
--- NOTE | 2022-02-22 13:17 | RAD REPORT ---
EXAM DESCRIPTION: Abdomen Exam Limited RadLex: US ABDOMEN LIMITED CLINICAL HISTORY: RUQ pain. COMPARISON: CT of the abdomen and pelvis from February 21, 2022. TECHNIQUE: Ultrasound of the abdomen with Doppler flow imaging was obtained. FINDINGS: Gallbladder: Cholelithiasis, including stones of the gallbladder neck. No gallbladder wall thickening. No focal tenderness over the gallbladder. Bile ducts: No dilatation of the intrahepatic bile ducts. The common bile duct measures 0.8 cm in yadiel meter at the daria hepatis. Incidentally noted increased parenchymal echogenicity with typical sparing adjacent to the gallbladde r. IMPRESSION: 1. Cholelithiasis. 2. Mildly prominent common bile duct. Correlate for potential choledocholithiasis. 3. Incidentally noted hepatic steatosis. Electronically signed by: Sarah Mendenhall MD 02/22/2022 12:28 AM CDT Due to temporary technical issues with the PACS/Fluency reporting system, reports are being signed by the in house radiologists without review as a courtesy to insure prompt reporting. The interpreting radiologist is fully responsible for the content of the report.
== END 2022-02-22 03:14 | disposition home or self-care (01) ==
LOC: ER 20:34
DX: K80.80 Other cholelithiasis without obstruction (principal); I10 Essential (primary) hypertension
CPT/HCPCS: 96361; 85025; 80048; 36415; 80076; 74176; 76705; 96375; 96374; 99284; J7030; J2405

== ENCOUNTER 2022-02-28 09:44 | Day surgery (SDC) | payer BC ==
[2022-02-28] MEDS ORDERED: Ringers Lactate 1,000 ML IV ONE (10:09)
[2022-02-28] MEDS ORDERED: LIDOCAINE 1% MPF 5 ML VIAL ONE (10:43)
[2022-02-28] MEDS ORDERED: ROCURONIUM 50 MG/5 ML VIAL IV ONE (10:43)
[2022-02-28] MEDS ORDERED: MIDAZOLAM HCL 2 MG/2 ML INJ ONE (10:43)
[2022-02-28] MEDS ORDERED: FENTANYL CITR 100 MCG/2 ML ONE (10:43)
[2022-02-28] MEDS ORDERED: propofoL 200 MG/20 ML VIAL IV ONE (10:43)
[2022-02-28] MEDS ORDERED: ACETAMINOPHEN 500 MG TAB ONE ×2 (10:58→11:14)
[2022-02-28] MEDS ORDERED: CELECOXIB 100 MG CAPSULE ONE ×2 (10:58→11:26)
--- NOTE | 2022-02-28 11:25 | P.HP ---
Date of Service: 02/28/22 PC: This 61-year-old male presents for a laparoscopic cholecystectomy with intraoperative cholangiogram. HPC: Patient has been experiencing right upper quadrant abdominal pain for the last few months. His most recent episode was triggered by eating some fried chicken, and potatoes. He experienced severe right upper quadrant abdominal pain, radiating into his back, which she describes as being almost unbearable. PSHx: Negative PMHx: Hypertension, anxiety Social Hx: No known drug allergies, takes Xanax for anxiety Sys R: No cough, wheeze, shortness of breath. No chest pain or palpitations. Denies any urinary complaints. Good exercise tolerance. O/E: Awake alert vital signs are stable HEENT: Nonicteric Chest: Air entry equal bilaterally Abd: Soft nontender no masses are palpable [place]: Intact Data: Has documented gallstones, 1 close to the neck of the gallbladder Impression: Cholecystitis with cholelithiasis, biliary colic Plan: I will take him to the operating room for laparoscopic possible open cholecystectomy with a cholangiogram. The risks of this procedure have been discussed. The possibility of bleeding, infection, injury to bile ducts blood vessels and intestines has been described. The possible need for an open and/or further surgeries and procedures was discussed. He understands and wants us to proceed.
[2022-02-28] MEDS ORDERED: CEFAZOLIN SODIUM 1 GM/VIAL ONE (11:28)
[2022-02-28] MEDS ORDERED: NA CHLORIDE 0.9% 0 ML ONE (11:29)
[2022-02-28] MEDS ORDERED: KETOROLAC 30 MG/ML INJ ONE (11:56)
[2022-02-28] MEDS ORDERED: dexAMETHasone 10 MG/ML VIAL ONE (11:56)
[2022-02-28] MEDS ORDERED: NS 0.9% VIAL 0 ML ONE (11:57)
[2022-02-28] MEDS ORDERED: EPHEDRINE SULF 50 MG/ML VIAL ONE (11:57)
[2022-02-28] MEDS ORDERED: ONDANSETRON 4 MG/2 ML VIAL ONE (11:57)
[2022-02-28] MEDS ORDERED: GLYCOPYRROLATE 0.2 MG/ML SYR ONE (12:46)
[2022-02-28] MEDS ORDERED: NEOSTIGMINE 1 MG/ML -10 ML VIAL ONE (12:47)
--- NOTE | 2022-02-28 13:00 | P.OP ---
Preoperative diagnosis: Cholecystitis with cholecystitis with cholelithiasis, biliary colic Postoperative diagnosis: The same Primary procedure: Laparoscopic cholecystectomy Secondary procedure: Cholangiogram Other procedure(s): Tap block Anesthesia: General anesthesia Estimated blood loss: Less than 10 cc Specimen: Gallbladder and contents Operative Technique: The patient was brought to the operating room and placed supine on the table. After the induction of adequate general endotracheal anesthesia, there the abdomen was prepped with a DuraPrep solution, and he was draped in the usual aseptic manner. A subumbilical incision was made. This was brought down through the skin and subcutaneous tissue. The Visiport was now used to enter the peritoneal cavity and created pneumoperitoneum to approximately 12 mmHg. Under direct vision a 5 mm trocar was placed in the upper midline, and 2 other 5 mm trochars on the right lateral side of the abdomen. The patient was then placed in reverse Trendelenburg. The table was rolled to the left. We could now visualize the right upper quadrant. We could see that the omentum was adherent to the gallbladder and suspended over the right lobe of the liver. The omentum was gently dissected off the capsule of the liver and the gallbladder itself. Having exposed the gallbladder and a grasper was placed on the fundus. Once again more adhesions to the body and Hunt's pouch of the omentum were taken down using blunt and sharp dissection. Hunt's pouch and now having been cleared, we could apply lateral traction. We were able to demonstrate and expose both the cystic duct and artery. Having obtained the critical view a clip was placed between the gallbladder and the cystic duct. An opening was made into the cystic duct through which we obtained a cholangiogram. The cholangiogram demonstrated good flow of contrast into the duodenum. Injecting under pressure allowed us to demonstrate the upper radicles. No obstructions or injury luminal objects were noted. At this point the catheter was removed. Clips were placed on the distal portion of the cystic duct. The cystic duct was now fully transected. Attention was turned towards the artery. Once again a clip was placed across the artery and the artery was transected on the gallbladder side. The gallbladder was gently dissected from the liver bed, placed into an Endo Catch, and brought out through the umbilical trocar site. At this point attention was turned back towards the right upper quadrant. The area was gently irrigated to remove any blood which was minimal. The irrigating fluid was aspirated through the cannula. Attention was turned down towards the pelvis. Once again any fluid was aspirated using the suction device. Attention was turned back towards the umbilical trocar site. Using the Endo Close we were able to approximate the fascial defect. At this point the pneumoperitoneum was collapsed, a tap block was done of the anterior abdominal wall with 0.25% Marcaine. The trochars were removed. The suture was tied. Jennifer were applied to the skin. At the end of the procedure the patient was stable and sent to the recovery room. Needle sponge instrument count were correct. No drains were placed. Complications: None Transferred to: Recovery Room Condition: Good
[2022-02-28] MEDS: HYDROMORPHONE HCL 1 MG/ML INJ ONE ×4 (13:11→13:30)
[2022-02-28] MEDS ORDERED: MORPHINE 4 MG/ML SYR IV PRN (13:14)
[2022-02-28 13:41] VITALS: O2SAT 96
[2022-02-28] MEDS ORDERED: HYDROMORPHONE HCL 1 MG/ML INJ ONE (13:44)
--- NOTE | 2022-02-28 14:14 | RAD REPORT ---
EXAM DESCRIPTION: RAD - Cholangiogram Oper-Xray Or - 02/28/2022 2:05 pm CLINICAL HISTORY: LAP JUSTO W/IOC Abdominal pain COMPARISON: Abdomen Exam Limited dated 02/22/2022 FINDINGS: Cystic duct injection was performed by operating surgeon. Common bile duct size is normal without filling defect to indicate retained stone. Total fluoro time: 0.4 minutes. Four fluoroscopic images submitted. IMPRESSION: No retained common duct stone seen.
[2022-02-28] MEDS: HYDROCODONE/APAP 7.5/325 MG TAB PO PRN (14:53)
[2022-02-28] MEDS: Ringers Lactate 1,000 ML IV SCH (14:54)
[2022-02-28 15:23] VITALS: BMI 31.3
[2022-03-01] MEDS: Ringers Lactate 1,000 ML IV SCH ×2 (01:18→10:00)
[2022-03-01] MEDS: HYDROCODONE/APAP 7.5/325 MG TAB PO PRN (04:24)
[2022-03-01 09:15] VITALS: BP 134/71; TEMP 97.8
== END 2022-03-01 11:46 | disposition home or self-care (01) ==
LOC: OR 09:44 → 4TH 13:19 → OR 03-01 11:46
PROVIDERS: ATTEND Surgery
PROC: BF13YZZ Fluoroscopy of Gallbladder and Bile Ducts using Other Contrast (ICD-10-PCS; 2022-02-28)
PROC: 0FT44ZZ Resection of Gallbladder, Percutaneous Endoscopic Approach (ICD-10-PCS; principal; 2022-02-28 11:00)
DX: K80.10 Calculus of gallbladder with chronic cholecystitis without obstruction (principal); K80.40 Calculus of bile duct with cholecystitis, unspecified, without obstruction; Z20.822 Contact with and (suspected) exposure to COVID-19; I10 Essential (primary) hypertension; F41.9 Anxiety disorder, unspecified
CPT/HCPCS: 88304; 74300; 94010 ×2; 47563; U0003; J2704; J2710; J2250; J3010; J1100; J1170 ×3; J7120 ×3; J2405; J0690